=== PATIENT | female | born 1955 | race Caucasian/White ===

== ENCOUNTER 2024-12-31 09:42 | Outpatient (AMB) | payer MEDICARE, MEDICAID, SELFPAY ==
--- NOTE | 2024-12-31 09:58 | PD.ORTHCLVIS ---
Vital signs 12/31/24 10:02 Height 1.71 m Height Method Stated Weight 75.013 kg Weight Measurement Method Standing Scale BMI 25.4 BP 153/83 H Blood Pressure Source Automatic Cuff Blood Pressure Location Left Upper Arm Position Sitting Respiration 18 Pulse 87 Pulse Source Monitor Temp 97.8 F Temp Source Temporal Artery Scan Pulse Oximetry (%) 91 L Oxygen Delivery Method Room Air Med/Allergies Allergies & Medications Allergies No Known Allergies Allergy (Verified 12/31/24 10:02) Medication Reconciliation diclofenac sodium 1 % topical gel 4 g topical QID #100 grams 12/31/24 [Rx] duloxetine 30 mg capsule,delayed release 30 mg PO QDAY 12/31/24 [History Confirmed 12/31/24] meloxicam 7.5 mg tablet 7.5 mg PO QDAY 12/31/24 [History Confirmed 12/31/24] meloxicam 7.5 mg tablet 7.5 mg PO QDAY #45 tabs 12/31/24 [Rx] tramadol 50 mg tablet 50 mg PO QDAY 12/31/24 [History Confirmed 12/31/24] Exam Exam Patient is in no acute distress and is cooperative with the examination today. Breathing is nonlabored. Patient has a normal mood and affect. Bilateral extremities were evaluated and demonstrates sensation intact to light touch. Palpable pedal pulses are present. No significant edema is present. Bilateral hips were examined. The patient has no pain with log roll of the hips. Internal rotation to 30 degrees and external rotation to 30 degrees is painless. Negative FADIR. Right knee was examined today. The right knee is in reasonable alignment. Range of motion from 0-120 degrees. Knee is stable to varus and valgus as well as AP translation with <5mm. Patient has a negative McMurrays. There is no pain with patellofemoral compression and no crepitus noted. The knee is nontender to palpation. Left knee was examined today. The left knee is in varus alignment. Range of motion from 0-115 degrees. Knee is stable to varus and valgus as well as AP translation with <5mm. Patient has a negative McMurrays. There is no pain with patellofemoral compression and no crepitus noted. The knee is tender to palpation medially. Assessment and Plan Problem List (1) Arthritis of left knee: Status: Acute Plan: Patient is a pleasant 69-year-old female with left knee pain and left knee arthritis. We discussed different treatment options. She would like anti-inflammatories as well as an injection. We will also get new x-rays. She reports is not a good time to get surgery as she is dealing with the recent . Recommend knee cortisone injection as patient would like to proceed with conservative treatment at this time. The risks and benefits of the procedure were reviewed with the patient and patient gave verbal consent to continue with the procedure. Procedure: performed by Dr. Chavez Using sterile technique the left knee was thoroughly prepped with alcohol, and approximately 1 cc of Kenalog 40 mg/mL and 4 cc of 1% lidocaine was injected without resistance into the medial tibial femoral joint space. The patient tolerated the procedure. 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 ([id number]) MA Intake Visit Data Collection New Patient or Established: New Patient (never been to [facility]) Reason for Visit:: LEFT KNEE MENISCUS TEAR/BILATERAL KNEE PAIN Seen by Clinical Staff ONLY (RN/MA): No PCP or OBGYN visit in last 3 months: Yes Hx Now: No Do You Feel Safe at Home: Yes Authorities Contacted: N/A Questionairres Past Medical History Past Medical History Have you ever been diagnosed with any of the following: Respiratory Problems Smoking: Yes (20 YEARS) Smoking Exposure: Yes Musculoskeletal Problems Arthritis: Yes Subjective Visit Visit for: new patient and knee (BILATERAL L WORSE) Immunization / Flu Flu Vaccine in the Last 12 Months: No Flu Vaccine Exclusion Criteria: Refused by Patient History of Present Illness Chief complaint: Left knee pain Date of injury / onset of symptoms: 1 YEAR Date of 1st surgery (if applicable): 12/2019 Sylvie is a pleasant 69-year-old female with bilateral knee pain worse on the left. She has previously had 3 injections. She is also had arthroscopic meniscectomy which did not help. She reports the pain is starting affect her quality life and happiness. She is an MRI but no x-rays. Personal History Occupation: [employer] Red flag PMH: smoker Pain Pain level (0-10): 8 Pain duration: CONSTANT Pain location: inside (medial) and anterior Pain quality: sharp, dull and aching Pain timing: night, increases with activity and stairs Associated signs & symptoms: stiffness Ambulatory data Ambulatory device: none Treatments Number of previous injections: 3 Improvement with previous injections: No Number of Physical Therapy sessions: 12 Improvement with PT: No Improvement with NSAIDS: no Review of Systems Review of Systems: All systems negative unless otherwise noted in HPI.
[2024-12-31 10:02] VITALS: BP 153/83; PULSE 87; RESP 18; TEMP 36.6; O2SAT 91; BMI 25.4
--- NOTE | 2024-12-31 10:07 | XR_ITS ---
Examination: Bilateral knees 2 views Right lateral knee left lateral knee 2 views Bilateral axial knees single view TECHNIQUE: Right lateral AP knees standing single view, bilateral PA knees standing single view flexion Standing right lateral knee left lateral knee 2 views Bilateral axial knees single view total 5 views Exam date and time: December 31, 2024 1027 hours INDICATIONS: Bilateral knee pain one year, left knee surgery 5 years ago FINDINGS: Moderate osteopenia Advanced narrowing [id number] medial joint space left knee Significant osteoarthritis left patellofemoral joint No fractures Moderate narrowing medial joint space right knee Mild to moderate osteoarthritis right patellofemoral joint IMPRESSION: Advanced narrowing [id number] medial joint space left knee Significant osteoarthritis left patellofemoral joint
== END 2024-12-31 10:17 | disposition home or self-care (01) ==
LOC: HODSRG 09:42
PROVIDERS: PCP Licensed Practical Nurse; Referring Provider Licensed Practical Nurse; Supervising Provider Orthopaedic Surgery Adult Reconstructive Orthopaedic Surgery; Visit Provider Orthopaedic Surgery Adult Reconstructive Orthopaedic Surgery
DX: M17.12 Unilateral primary osteoarthritis, left knee (principal); M25.562 Pain in left knee; M25.561 Pain in right knee
CPT/HCPCS: 20610; 73564; 99204; J3301; J3490; G0463

== ENCOUNTER 2025-04-11 09:14 | Outpatient (AMB) | payer MEDICARE, MEDICAID, SELFPAY ==
--- NOTE | 2025-04-11 09:36 | PD.ORTHCLVIS ---
Vital signs 04/11/25 09:37 Height 1.71 m Height Method Stated Weight 75.41 kg Weight Measurement Method Standing Scale BMI 25.7 BP 152/90 H Blood Pressure Source Automatic Cuff Blood Pressure Location Left Upper Arm Position Sitting Respiration 18 Pulse 91 Pulse Source Monitor Temp 97.5 F Temp Source Temporal Artery Scan Pulse Oximetry (%) 94 L Oxygen Delivery Method Room Air Med/Allergies Allergies & Medications Allergies No Known Allergies Allergy (Verified 04/11/25 09:37) Medication Reconciliation diclofenac sodium 1 % topical gel 4 g topical QID #100 grams 12/31/24 [Rx Confirmed 04/11/25] duloxetine 30 mg capsule,delayed release 30 mg PO QDAY 12/31/24 [History Confirmed 04/11/25] meloxicam 7.5 mg tablet 7.5 mg PO QDAY 12/31/24 [History Confirmed 04/11/25] meloxicam 7.5 mg tablet 7.5 mg PO QDAY #45 tabs 12/31/24 [Rx Confirmed 04/11/25] tramadol 50 mg tablet 50 mg PO QDAY 12/31/24 [History Confirmed 04/11/25] Exam Exam Patient is in no acute distress and is cooperative with the examination today. Breathing is nonlabored. Patient has a normal mood and affect. Bilateral extremities were evaluated and demonstrates sensation intact to light touch. Palpable pedal pulses are present. No significant edema is present. Bilateral hips were examined. The patient has no pain with log roll of the hips. Internal rotation to 30 degrees and external rotation to 30 degrees is painless. Negative FADIR. Right knee was examined today. The right knee is in reasonable alignment. Range of motion from 0-120 degrees. Knee is stable to varus and valgus as well as AP translation with <5mm. Patient has a negative McMurrays. There is no pain with patellofemoral compression and no crepitus noted. The knee is nontender to palpation. Left knee was examined today. The left knee is in varus alignment. Range of motion from 0-115 degrees. Knee is stable to varus and valgus as well as AP translation with <5mm. Patient has a negative McMurrays. There is no pain with patellofemoral compression and no crepitus noted. The knee is tender to palpation medially. X-rays demonstrate complete joint space loss and obliteration medially. She has varus arthritis with varus deformity Assessment and Plan Problem List (1) Arthritis of left knee: Status: Acute Plan: Patient is a pleasant 69-year-old female with left knee pain and left knee arthritis. We discussed different treatment options. She would like anti-inflammatories as well as an injection. She has done well with the last cortisone injection and would like another 1 today. She reports the pain is affecting her quality life and she would like to get surgery but would like 1 more injection and wants to get surgery. Recommend knee cortisone injection as patient would like to proceed with conservative treatment at this time. The risks and benefits of the procedure were reviewed with the patient and patient gave verbal consent to continue with the procedure. Procedure: performed by Dr. Chavez Using sterile technique the left knee was thoroughly prepped with alcohol, and approximately 1 cc of Depo-Medrol 80mg/mL and 4 cc of 0.2% ropivacaine was injected without resistance into the medial tibial femoral joint space. The patient tolerated the procedure. The nature and purpose of the total knee replacement, alternative method(s) of treatment, the material risks involved, and the possibility of complications were fully explained to the patient. The patient does NOT have any of the following contraindications to TKA: - Active infection of the knee joint, OR - Active systemic bacteremia, OR - Active skin infection or open wound at surgical site, OR - Neuropathic arthritis, OR - Severe, rapidly progressive neurological disease, OR - Severe medical condition that makes risks of surgery outweigh the potential benefit The patient was told the most common risks and complications associated with a total knee replacement include, but are not limited to: blood clots in the leg, fatal pulmonary embolism, dislocation of the prosthesis, intraoperative and postoperative fractures of the femur or tibia, infection, failure of the prosthesis or grafting materials, complications from anesthesia, reactions to blood transfusions, postoperative leg length inequality, instability of the knee replacement, nerve damage or injury, vascular injury, delayed wound healing, infection, other injury or even . In addition, there are risks associated with anesthesia given during this operation. Also, the patient was told that after undergoing a total knee replacement there may still be persistent pain or disability. The patient was informed that the success of this operation in part depends upon the mechanical devices which are going to be implanted and that these devices can fail or malfunction, and may need to be repaired or replaced and there are no guarantees as to the longevity of this device or its parts and that it or its parts could fail prematurely. The patient was also notified that during the course of surgery, there may be a need to use bone graft from donors, and that any bone graft used will be carefully screened for communicable diseases, including AIDS, hepatitis, Mynor-Creutzfeldt, or other diseases, but despite the screening procedures, there is a small chance that they could contract one of these diseases. Finally, the patient was asked to follow completely and fully with all advice and recommended treatments, and that recovery and ultimate outcome are affected by their compliance with recommended treatment. We discussed the risks, benefits and treatment alternatives, and the patient is interested in proceeding with surgery. We will set up surgery in 3 months due to the cortisone injection Advanced Care Planning Discussion Advance care planning discussed with:: patient Office Procedures GNS Level of Care Nursing/Assessment Patient Status: Established Patient Nursing Assessment/Reassesment: Medication Reconciliation, Update PMH in EMR and Vital Signs Coordination of Care: Complex Care and Chronic Disease 1-5, Education Complex Pt/Fam, Consent,records obtained, informed consent, Results/Orders obtained and Staff clarify orders Established Patient Charge Established Patient Point Assignment: 95 Established Patient Point Charge: EP Level 3 (80-115) Surgical Proc/IM SQ injection Major Surgical Procedure: Yes (KNEE INJECTION) Medication Given Medication Given Medication Given: Yes Documented Dose Given: 1 Route: Infiitration Medication Given Medication Given Medication Given: Yes Documented Dose Given: 4 Route: Infiitration Office Meds methylprednisolone acetate 80 mg/mL suspension for injection Performing Provider: Tay Chavez MD Performing Location: [facility] Administered by: Tay Chavez MD on 04/11/25 10:43 Dose Route Admin Location Dispensed Lot Number Expiration Date [facility] Tier Off 80 mg intra-articular 1 mL [id number] 08/17/26 [address]-9 [employer] ropivacaine (PF) 2 mg/mL (0.2 %) injection solution Performing Provider: Tay Chavez MD Performing Location: [facility] Administered by: Tay Chavez MD on 04/11/25 10:43 Dose Route Admin Location Dispensed Lot Number Expiration Date [facility] Tier Off 20 mL Infiltration 20 mL [id number] 08/17/26 24782-013-93 [facility] Intake Visit Data Collection New Patient or Established: Established Patient (seen at [facility] within 3 years) Reason for Visit:: LEFT KNEE MENISCUS TEAR/BILATERAL KNEE PAIN Seen by Clinical Staff ONLY (RN/STORMY): No PCP or OBGYN visit in last 3 months: Yes Hx Now: No Do You Feel Safe at Home: Yes Authorities Contacted: N/A Questionairres Past Medical History Past Medical History Have you ever been diagnosed with any of the following: Respiratory Problems Smoking: Yes (20 YEARS) Smoking Exposure: Yes Musculoskeletal Problems Arthritis: Yes Subjective Visit Visit for: follow up visit, knee (BILATERAL L WORSE) and injections Immunization / Flu Flu Vaccine in the Last 12 Months: No Flu Vaccine Exclusion Criteria: Refused by Patient History of Present Illness Chief complaint: Left knee pain Date of injury / onset of symptoms: 1 YEAR Date of 1st surgery (if applicable): 12/2019 Sylvie is a pleasant 69-year-old female with bilateral knee pain worse on the left. She has previously had 3 injections. She is also had arthroscopic meniscectomy which did not help. She reports the pain is starting affect her quality life and happiness. She would like to get surgery in 3 months and would like another injection today Personal History Occupation: [employer] Red flag PMH: smoker Pain Pain level (0-10): 8 Pain duration: CONSTANT Pain location: inside (medial) and anterior Pain quality: sharp, dull and aching Pain timing: night, increases with activity and stairs Associated signs & symptoms: stiffness Ambulatory data Ambulatory device: none Treatments Number of previous injections: 4 Improvement with previous injections: Yes Number of Physical Therapy sessions: 12 Improvement with PT: No Improvement with NSAIDS: no Review of Systems Review of Systems: All systems negative unless otherwise noted in HPI.
[2025-04-11 09:37] VITALS: BP 152/90; PULSE 91; RESP 18; TEMP 36.4; O2SAT 94; BMI 25.7
== END 2025-04-11 10:12 | disposition home or self-care (01) ==
LOC: HODSRG 09:14
PROVIDERS: PCP Licensed Practical Nurse; Referring Provider Licensed Practical Nurse; Supervising Provider Orthopaedic Surgery Adult Reconstructive Orthopaedic Surgery; Visit Provider Orthopaedic Surgery Adult Reconstructive Orthopaedic Surgery
DX: M17.12 Unilateral primary osteoarthritis, left knee (principal); M25.562 Pain in left knee; M25.561 Pain in right knee
CPT/HCPCS: 20610; 99213; J1010; J2795; G0463